=== PATIENT | female | born 1990 | race Caucasian/White ===

== ENCOUNTER 2018-04-29 08:45 | Inpatient (IN) | payer SELFPAY ==
[~2018-04-29] VITALS: Ht 160 cm; Wt 93.9 kg
[~2018-04-29 08:45] MED LIST: AMOXICILLIN500 MG PO; AUGMENTIN500TAB PO; BUTALBITAL/ACETAMIN1 PO; CEPHALEXIN500 MG PO; COD PO; CORTISPORIN OTI10 ML AD; DILANTIN100 MG OR; DILANTIN100 MG PO; EEG; FERROUS SULF325 M3 PO; FIORINAL PO; IBUPROFEN600 MG PO; KEPPRA500 M2 PO; LORTAB 7.57.5 MG PO; LORTAB5 OR; NICOTINE T21 MG/PATC TD; NO; NO CURRENT MEDS; NORCO1 TA1 PO; OXYCODONE HCL5 MG PO; PRE-NATAL PO; TUMS500 MG PO; TYLENOL 500MG TAB PO; ULTRAM50 MG OR; VALPROIC ACD250 MG; ZPAK PO; no home meds
--- NOTE | 2018-04-29 09:22 | NUR ---
Pt to room # 9 via W/C for bedside triage
--- NOTE | 2018-04-29 09:24 | NUR ---
PT TAKEN DIRECTLY TO RM 9 VIA WHEELCHAIR WITH SEVERE R FLANK PAIN
--- NOTE | 2018-04-29 09:35 | NUR ---
PT C/O RT FLANK PAIN . PT STATES PAIN IS 8/10. MD AWARE. N/O RECEIVED
[2018-04-29 10:10] LABS: URINE BILIRUBIN - DIPSTICK NEGATIVE (NEGATIVE); URINE BLOOD DIPSTICK TRACE-INTACT (NEGATIVE); URINE COLOR YELLOW; URINE GLUCOSE - DIPSTICK NEGATIVE (NEGATIVE); URINE KETONE NEGATIVE (NEGATIVE); URINE LEUK ESTERASE NEGATIVE (NEGATIVE); URINE PROTEIN - DIPSTICK NEGATIVE (NEG-TRACE); URINE SPECIFIC GRAVITY 1.015; URINE UROBILINOGEN - DIPSTICK 0.2 E.U./dL (0.2)
[2018-04-29 10:14] LABS: IMMATURE GRANULOCYTES 0.4 % (0.0-5.0); MEAN CELL VOLUME 95.9 fL CALC (80.0-100.0); MEAN CORPUSCULAR HGB 31.8 pG CALC (26.0-32.0); MEAN CORPUSCULAR HGB CONC 33.2 g/L CALC (32.0-36.0); NEUT# 11.02 thou/uL (2.00-7.15); RED BLOOD COUNT 4.62 mill/uL (4.20-5.60); RED CELL DISTRI WIDTH 12.9 % (11.5-15.5)
[2018-04-29 10:15] LABS: HEMATOCRIT 44.3 % (37.0-47.0); HEMOGLOBIN 14.7 g/dl (12.0-16.0)
[2018-04-29 10:16] LABS: URINE CLARITY CLOUDY; URINE NITRITE - DIPSTICK POSITIVE (Negative)
[2018-04-29 10:18] LABS: URINE BACTERIA MANY hpf; URINE EPITHELIAL CELLS MODERATE EPI/hpf (0-FEW)
[2018-04-29 10:23] LABS: BILIRUBIN, TOTAL 0.6 mg/dL (0.0-1.4); BUN 10 mg/dL (7-17); BUN/CREATININE RATIO 15 (12-20 (CALC)); CHLORIDE 103 mmol/l (95-108); CREATININE 0.7 mg/dL (0.5-1.0); GFR > 60 ML/MIN (>=60 (CALC)); GFR FOR AFR.AMER. > 60 ML/MIN (>=60 (CALC)); SGPT/ALT 62 u/l (9-52); SODIUM 143 mmol/l (137-146)
[2018-04-29 10:25] LABS: ALBUMIN 4.5 g/dL (3.2-5.0); ALKALINE PHOSPHATASE 58 u/l (38-126); ANION GAP 17 (6-22 (CALC)); CARBON DIOXIDE 28 mmol/l (22-30); POTASSIUM 4.6 mmol/l (3.5-5.1); SGOT/AST 49 u/l (14-36)
--- NOTE | 2018-04-29 10:52 | NUR ---
PT RESTING MORE COMFORTABLY AT THIS TIME.VSS. STATES PAIN IS 2/10.IV ABT & FLUIDS INFUSING ORDERED.SRX2, BED IN LOW POSIITON,CALL LIGHT WITHIN REACH
--- NOTE | 2018-04-29 11:10 | NUR ---
RESTING IN NO ACUTE DISTRESS. VSS. IV FLUIDS INFUSING WITHOUT DIFFICULTY. PT PAIN FREE
--- NOTE | 2018-04-29 11:53 | NUR ---
SBAR PRINTED TO FLOOR
--- NOTE | 2018-04-29 13:28 | NUR ---
CALLED REPORT TO DESTINY LOVE RN
--- NOTE | 2018-04-29 13:45 | NUR ---
TRANSPORTED TO [facility] VIA STRETCHER IN STABLE CONDITION. UPDATED DESTINY ON TEMP 100.2 AND JUS TMEDICATED WITH TYLENOL PO
[2018-04-29 14:00] VITALS: BP 123/68
--- NOTE | 2018-04-29 14:00 | NUR ---
PT ADMITTED FROM ER VIA STRECTHER TO MED SURG ROOM 279, PT STOOD OFF STRETCHER ADN AMBULATED TO SCALE THEN INTO BED WITH STEADY GAIT, VS OBTAINED TEMP 101.2 (MEDICATED IN ER PRIOR TO ARRIVAL HERE ON MS) ADMISSION ASSESSMENT COMPLETED; SEE INTERVENTIONS; LUNGS CLEAR NO SOB OR DISTRESS NOTED ABD SOFT, LAST BM 2-3 DAYS AGO, STATES POOR APPETITE AND PO INTAKE RELATED TO PAIN, HAS HAD R FLANK PAIN FOR FEW DAYS WITH FEVERS AND CLOUDY URINE AND OCCASIONAL ODOR, ALSO STATES SHE HAS HAD SOME BLOOD IN HER URINE BUT STATES THAT SHE HAS BEEN HAVING THIS BLOOD IN HER URINE SINCE HER MERINA PLACEMENT. ORIENTED TO ROOM AND UNIT, CALL TOMLIN WITHIN REACH, SAFETY MEASURES INTRODUCED, PT HAS BEEN NPO PER REPORT FORM ER NURSE FOR POTNETIAL PROCEDURE IN O.R. LATER TODAY, PT AWARE OF NPO STATUS, 22G IN RFA SALINE LOCKED AT THIS TIME, WILL CONTINUE TO MONITOR.
--- NOTE | 2018-04-29 14:55 | NUR ---
PT RESTING WITH EYES CLOSED, WILL INTITATE IVF ORDERED, NPO STATUS MAINTAINED, CALL TOMLIN WITHIN REACH
--- NOTE | 2018-04-29 15:20 | NUR ---
PT RESTING IN BED, TEMP REMAINS ELEVATED WILL NOTIFY
--- NOTE | 2018-04-29 15:46 | NUR ---
PT AWARE OF PLANNED PROCEURE AND CURRENT DELAY UNTIL TOMORROW, DIET ORDERED AND EDUCATED REGARDING NPO AFTER MIDNIGHT TONIGHT AGIAN FOR PLANNED PROCEDURES TOMORROW. IVF INFUSING WITHOUT INCIDENT.
--- NOTE | 2018-04-29 16:08 | NUR ---
PT MEDICATED WITH TORADOL FOR PAIN AND FEVER, WILL RE EVALUATE. AT BEDSIDE DISCUSSING PLAN OF CARE INCLUDING RESTARTING ANTI SEIZURE MEDICATION. PT VERBALIZES UNDERSTANDING
--- NOTE | 2018-04-29 17:52 | NUR ---
pt complained of burning at iv access in rac, unable to get aspirate, pain on flush, site removed intact and 22g placed in lac on 3rd attempt by Krystina Gilbert RN (first 2 attempts by this nurse)
--- NOTE | 2018-04-29 17:56 | NUR ---
SET UP ASSIST PROVIDED FOR PM MEAL
[2018-04-29 19:12] VITALS: BP 123/78
--- NOTE | 2018-04-29 19:38 | NUR ---
BEDSIDE REPORT RECEIVED FROM KAMLA SHEA. PT RESTING IN BED ON RIGHT SIDE WITH EYES CLOSED. C/O RIGHT FLANK PAIN 4/10 AND STATES THAT SHE FEELS LIKE HER TEMPERATURE IS GOING UP. CURRENT TEMP IS 100.1; TYLENOL GIVEN. RESPIRATIONS EVEN AND UNLABORED ON ROOM AIR. PLAN OF CARE DISCUSSED. PT ENCOURAGED TO VERBALIZE CONCERNS. STATES UNDERSTANDING. SAFETY MEAUSRES IN PLACE. CALL LIGHT WITHIN REACH.
--- NOTE | 2018-04-30 | NUR ---
PT UP TO BATHROOM TO VOID CLOUDY, YELLOW URINE. PLACED ON NPO DIET AT THIS TIME. PT STATES THAT FLANK PAIN HAS IMPROVED SINCE TORADOL WAS ADMINISTRED. RESPIRATIONS EVEN AND UNLABORED ON ROOM AIR. STAND BY ASSIST TO THE BATHROOM. IV FLUIDS INFUSING WITHOUT DIFFICULTY; IV SITE APPEARS HEALTHY. SAFETY MEASURES IN PLACE. CALL LIGHT WITHIN REACH.
[2018-04-30 04:00] VITALS: BP 129/80
[2018-04-30 05:23] LABS: HEMATOCRIT 39.2 % (37.0-47.0); HEMOGLOBIN 12.9 g/dl (12.0-16.0); IMMATURE GRANULOCYTES 0.4 % (0.0-5.0); MEAN CELL VOLUME 96.6 fL CALC (80.0-100.0); MEAN CORPUSCULAR HGB 31.8 pG CALC (26.0-32.0); MEAN CORPUSCULAR HGB CONC 32.9 g/L CALC (32.0-36.0); NEUT# 9.43 thou/uL (2.00-7.15); RED BLOOD COUNT 4.06 mill/uL (4.20-5.60); RED CELL DISTRI WIDTH 12.8 % (11.5-15.5)
--- NOTE | 2018-04-30 05:29 | NUR ---
PT REMAINS WITH LOW GRADE TEMPERATURE. SPIKED UP TO 102.0 THIS AM. PAIN HAS BEEN MANAGED WITH TYLENOL AND TORADOL. WILL CONTINUE TO MONITOR.
[2018-04-30 07:50] VITALS: BP 119/76
--- NOTE | 2018-04-30 07:50 | NUR ---
PT ALERT AND ORIENTED RESTING IN BED, STATES PAIN "FINE RIGHT NOW" AFEBRILE THIS AM WITH T MAX LAST PM 102.0 PER REPORT; NPO SINCE MIDNIGHT; MAINTAINED NPO STATUS THIS AM; PT AWARE OF PLANNED SURGICAL INTERVENTION TO DAY AT 245P, COMFORT MEASURES PROVIDED, IVF CONTINUE AT PRESCRIBED RATE. WILL CONTINUE TO MONITOR.
--- NOTE | 2018-04-30 08:43 | NUR ---
PT RESTING; CALL TOMLIN WITHIN REACH; NO S/S OF DISTRESS NOTED.
--- NOTE | 2018-04-30 09:43 | NUR ---
NICOTINE PATCH APPLIED PER PT REQUEST, TYELNOL GIVEN FOR TEMP 100.5 WILL MONITOR CLOSELY. CALL TOMLIN WITHIN REACH, WILL CONTINUE TO MONITOR
--- NOTE | 2018-04-30 10:09 | NUR ---
PT AGOTATED TALKING ON PHONE, STARTED ON ABT EDUCATION GIVEN PROVIDING MEDICATION; REASON FOR ADMINISTRATION; EXPECTATIONS AND POSSBILE SIDE EFFECTS, VERBALIZES UNDERSTANDING.
--- NOTE | 2018-04-30 12:27 | NUR ---
MEDICATED FOR PAIN ORDERED, REMAINS NPO
--- NOTE | 2018-04-30 13:00 | NUR ---
PT STATES MODERATE RELIEF AFTER TORADOL, AWAITING O.R. NPO STATUS MAINTAINED
--- NOTE | 2018-04-30 13:32 | NUR ---
PT TRASNFERRED SELF TO STRETCHER, TO O.R. VIA STRETCHER WITH O.R.STAFF
--- NOTE | 2018-04-30 16:51 | NUR ---
PT BACK TO ROOM FROM OR VIA STRETCHER
--- NOTE | 2018-04-30 16:55 | NUR ---
PT BACK FROM OR, TRANSFERRED SELF TO BED WITH MIN ASSIST PT HAS STERI STRIPS AND STRINGS (ATTACHED TO STENTS PER REPORT) NOTED ON PUBIC AREA COVERED WITH TRASNPARENT DRESSING, IVF INFUSING AT PRESCRUBED RATE, TO 22G IN LEFT AC, PT REQUESTING TO AMBULATE TO BATHROOM, DID SO WITH STAND BY ASSIST, VOIDED 200 ML SLITHGLY CLOUDY AND BLOODY URINE, C/O BURNING WITH URINATION, BUT TOLERAABLE PER HER, BACK TO BED WITH STEADY GAIT, REPOSITIONS SELF FOR COMFORT, EDUCATED REGARDING PLAN OF CARE INCLDUING AMBULATION, CHRISSY CARE, DIET ORDERED, PAIN CONTROL AND PROBABLE D/C TOMORROW, PT VERBALIZES UNDERSTANDING AND ALL QUESTIONS ANSWERED, CALL TOMLIN WITHIN REACH.
--- NOTE | 2018-04-30 18:03 | NUR ---
SET UP ASSIST PROVIDED FOR PM MEAL, AND WILL MEDICATE FOR COMPLAINTS OF PAIN ORDERED
--- NOTE | 2018-04-30 18:29 | NUR ---
PT MEDICATED FOR PAINAND WITH PYRIDIUM WELL FOR COMFORT, AFTER AMBULATING TO BATHROOM, CONTINENT OF ANOTHER 200 ML CLOUDY SLIGHTLY BLOODY URINE, VISITORS AT BEDSIDE PT TOLERATED ACTIVITY WELL, BACK TO BED AND REPOSITIONED SELF FOR COMFORT, CALL TOMLIN WITHIN REACH
[2018-04-30 19:35] VITALS: BP 121/72
--- NOTE | 2018-04-30 19:39 | NUR ---
BEDSIDE REPORT RECEIVED FROM KAMLA DIXON. PT RESTING IN BED ON RIGHT SIDE WITH EYES CLOSED. C/O 5/10 PAIN IN VAGINAL AREA. RESPIRATIONS EVEN AND UNLABORED ON ROOM AIR. PLAN OF CARE REVIEWED. PT ENCOURAGED TO VERBALIZE CONCERNS. STATES UNDERSTANDING. SAFETY MEASURES IN PLACE. CALL LIGHT WITHIN REACH.
[2018-04-30 23:53] VITALS: BP 114/75
--- NOTE | 2018-05-01 | NUR ---
PT ASLEEP AT THIS TIME WITH NO SIGNS OF DISTRESS; AWAKENS TO VERBAL STIMULI. VS STABLE AND TEMPERTURE REMAINS LOW GRADE. HAS REMAINED IN BED; REPOSITIONING SELF. IV FLUIDS INFUSING WITHOUT DIFFICULTY; IV SITE APPEARS HEALTHY. NO REQUESTS OR CONCERNS AT THIS TIME. SAFETY MEASURES IN PLACE. CALL LIGHT WITHIN REACH.
[2018-05-01 03:55] VITALS: BP 125/85
--- NOTE | 2018-05-01 04:00 | NUR ---
PT STATES THAT SHE WAS UP TO VOID X 2 INDEPENDENTLY R/T URGENCY; REPORTS CLOUDY YELLOW AND BLOOD TINGED URINE. C/O SOME FLANK AND VAGINAL PAIN; ONE PERCOCET GIVEN AND SNACK. PT INITALLY DECLINED LAB WORK, HOWEVER, STATES THAT SHE WILL ALLOW ONLY ONE ATTEMPT. ATTEMPT UNSUCCESSFUL; LAB WORK NOT OBTAINED THIS AM. SAFETY MEASURES IN PLACE. CALL LIGHT WITHIN REACH.
--- NOTE | 2018-05-01 07:24 | NUR ---
SHIFT CHAGE REPORT FROM MELODIE, PT AWAKE ALERT AND ORIENTED, TALKING ON PHONE AT THIS TIME AND ASKING LIMITED RADIOLOGY TECHNICIAN TO COME BACK IN MINUTES TO DO BLOOD WORK. I WENT IN ROOM AND ASKED PT TO LEND THE OTHER ARM FOR BLOOD WORK BUT SHE SHE BECAME IRATE STATING "YOU ALL DON'T KNOW HOW TO DO IT ANYWAY, I'M THE ONE GETTING STICK TOO MANY TIMES" I ADVISED HER TO LET US KNOW WHETHER OR NOT SHE WANTS TO HAVE HER LABS DONE AND SHE BLURTED OUT, "I DONT WANT IT", WILL CONTINUE TO MONITOR.
[2018-05-01 07:44] LABS: HEMATOCRIT 37.8 % (37.0-47.0); HEMOGLOBIN 12.4 g/dl (12.0-16.0); IMMATURE GRANULOCYTES 0.4 % (0.0-5.0); MEAN CELL VOLUME 97.4 fL CALC (80.0-100.0); MEAN CORPUSCULAR HGB CONC 32.8 g/L CALC (32.0-36.0); NEUT# 6.88 thou/uL (2.00-7.15); RED BLOOD COUNT 3.88 mill/uL (4.20-5.60)
[2018-05-01 08:22] LABS: ALKALINE PHOSPHATASE 50 u/l (38-126); ANION GAP 12 (6-22 (CALC)); BILIRUBIN, TOTAL 0.3 mg/dL (0.0-1.4); BUN 8 mg/dL (7-17); BUN/CREATININE RATIO 14 (12-20 (CALC)); CARBON DIOXIDE 26 mmol/l (22-30); CHLORIDE 108 mmol/l (95-108); CREATININE 0.5 mg/dL (0.5-1.0); GFR > 60 ML/MIN (>=60 (CALC)); GFR FOR AFR.AMER. > 60 ML/MIN (>=60 (CALC)); MAGNESIUM 1.9 mg/dL (1.6-2.3); POTASSIUM 4.3 mmol/l (3.5-5.1); SGOT/AST 48 u/l (14-36); SGPT/ALT 63 u/l (9-52); SODIUM 142 mmol/l (137-146)
[2018-05-01 08:24] LABS: TOTAL PROTEIN 5.7 g/dL (6.3-8.2)
[2018-05-01 08:27] VITALS: BP 137/85
--- NOTE | 2018-05-01 08:42 | NUR ---
PT IS RELAXED AND CALM AT THIS TIME, COMPLIANT WITH ALL TREATMENTS, ALL NEEDS ADDRESSED.
--- NOTE | 2018-05-01 11:09 | NUR ---
PT RESTING IN BED, DENIED PAIN/DISCOMFORT, DR SANTIAGO HERE ROUNDING, DISCUSSED PLAN OF CARE, PT STATED UNDERSTANDING.
[2018-05-01] MEDS ORDERED: CIPROFLOXACN500 MG PO (11:48)
[2018-05-01] MEDS ORDERED: KEFLEX500 M1 PO (13:27)
[2018-05-01] MEDS ORDERED: PERCOCET 5/325M1 TAB PO (13:56)
--- NOTE | 2018-05-01 15:15 | NUR ---
RESTING IN BED, REQUEST SCRIPT FOR ANALGESIC TO CONTROL PAIN AT HOME, NOTIFIED AND ADDRESS CONCERN. PT STATED HER RIDE WILL NOT BE HERE UNTIL AFTER 1600 WHEN HE/SHE LEAVES WORK, PAIN CONTROLLED, ALL NEEDS MET/ADDRESSED, CALL TOMLIN IN REACH.
--- NOTE | 2018-05-01 16:12 | NUR ---
Discharge instructions given. Patient verbalizes understanding of same. Discharged in stable condition via Wheelchair to Home with significant other. All belongings sent with pt.
== END 2018-05-01 16:00 | disposition home or self-care (01) | DRG 690 ==
LOC: ED 08:45 → ED-I 11:32 → ED 12:18 → MS2 12:19
PROVIDERS: Emergency Medicine; ADMIT Internal Medicine Nephrology; ATTEND Internal Medicine Nephrology
PROC: 0T768DZ Dilation of Right Ureter with Intraluminal Device, Via Natural or Artificial Opening Endoscopic (ICD-10-PCS; principal; 2018-04-30)
PROC: 3E0234Z Introduction of Serum, Toxoid and Vaccine into Muscle, Percutaneous Approach (ICD-10-PCS; 2018-05-01)
DX: N13.6 Pyonephrosis (principal); F17.210 Nicotine dependence, cigarettes, uncomplicated; G40.909 Epilepsy, unspecified, not intractable, without status epilepticus; E66.9 Obesity, unspecified; B96.20 Unspecified Escherichia coli [E. coli] as the cause of diseases classified elsewhere; Z68.33 Body mass index [BMI] 33.0-33.9, adult; Z91.14 Patient's other noncompliance with medication regimen; Z23 Encounter for immunization
CPT/HCPCS: C1769; J1650; Q9967

== ENCOUNTER 2019-01-18 19:06 | Emergency (ER) | payer SELFPAY ==
[~2019-01-18] VITALS: Ht 160 cm; Wt 88.0 kg
[~2019-01-18 19:06] MED LIST changes: +CIPROFLOXACN500 MG PO; +KEFLEX500 M1 PO; +PERCOCET 5/325M1 TAB PO
[2019-01-18] MEDS ORDERED: PENICILLN VK500 MG PO (19:54)
[2019-01-18] MEDS ORDERED: LORTAB 5/3255 MG PO (19:54)
== END 2019-01-18 20:22 | disposition home or self-care (01) | DRG 603 ==
LOC: ED 19:06
DX: L02.91 Cutaneous abscess, unspecified (principal); S02.5XXA Fracture of tooth (traumatic), initial encounter for closed fracture; R68.84 Jaw pain; F17.210 Nicotine dependence, cigarettes, uncomplicated; X58.XXXA Exposure to other specified factors, initial encounter

== ENCOUNTER 2019-06-08 17:28 | Emergency (ER) | payer SELFPAY ==
[~2019-06-08] VITALS: Ht 160 cm; Wt 100.0 kg
[~2019-06-08 17:28] MED LIST changes: +LORTAB 5/3255 MG PO; +PENICILLN VK500 MG PO
[2019-06-08] MEDS ORDERED: CORTISPORIN OTI10 M2 AD ×2 (19:03→19:33)
[2019-06-08 19:05] VITALS: BP 166/79
== END 2019-06-08 19:05 | disposition home or self-care (01) | DRG 156 ==
LOC: ED 17:28
DX: H60.91 Unspecified otitis externa, right ear (principal); F17.200 Nicotine dependence, unspecified, uncomplicated

== ENCOUNTER 2019-11-16 | Inpatient (IN) | payer SELFPAY ==
[2019-11-15] VITALS (8 sets, daily range): BP systolic 147–169; BP diastolic 68–96
[2019-11-15 18:42] LABS: IMMATURE GRANULOCYTES 0.5 % (0.0-5.0); MEAN CORPUSCULAR HGB CONC 33.3 g/dL CAL (32.0-36.0); NEUT# 8.63 thou/uL (2.00-7.15); RED CELL DISTRI WIDTH 12.9 % (11.5-15.5)
[2019-11-15 18:47] LABS: HEMATOCRIT 46.5 % (37.0-47.0); HEMOGLOBIN 15.5 g/dl (12.0-16.0)
[2019-11-15 19:35] LABS: ALKALINE PHOSPHATASE 54 u/l (38-126); BUN 11 mg/dL (7-17); BUN/CREATININE RATIO 20 (12-20 (CALC)); CHLORIDE 108 mmol/l (95-108); CREATININE 0.6 mg/dL (0.5-1.0); GFR > 60 ML/MIN (>=60 (CALC)); GFR FOR AFR.AMER. > 60 ML/MIN (>=60 (CALC)); POTASSIUM 3.9 mmol/l (3.5-5.1); SGOT/AST 31 u/l (14-36); SODIUM 140 mmol/l (137-146)
[2019-11-15 19:41] LABS: ALBUMIN 4.5 g/dL (3.2-5.0); ANION GAP 16 (6-22 (CALC)); BILIRUBIN, TOTAL 0.5 mg/dL (0.0-1.4); CARBON DIOXIDE 20 mmol/l (22-30)
[2019-11-15 20:38] LABS: URINE BILIRUBIN - DIPSTICK NEGATIVE (NEGATIVE); URINE BLOOD DIPSTICK SMALL (NEGATIVE); URINE COLOR YELLOW; URINE GLUCOSE - DIPSTICK 100 mg/dL (NEGATIVE); URINE KETONE 15 mg/dL (NEGATIVE); URINE LEUK ESTERASE NEGATIVE (NEGATIVE); URINE NITRITE - DIPSTICK NEGATIVE (Negative); URINE PH 5.5 (4.5-8.0); URINE PROTEIN - DIPSTICK 30 mg/dL (NEG-TRACE); URINE SPECIFIC GRAVITY >=1.030
[2019-11-15 20:49] LABS: URINE SQUAMOUS EPITHELIAL CELL FEW EPI/hpf (0-FEW)
[2019-11-15 20:50] LABS: BARBITURATES NEGATIVE (NEGATIVE); COCAINE NEGATIVE (NEGATIVE); METHADONE NEGATIVE (NEGATIVE); OXCYCODONE NEGATIVE (NEGATIVE); TETRAHYDROCANNABIONOL NEGATIVE (NEGATIVE); TRICYLIC ANTIDEPRESSANTS NEGATIVE (NEGATIVE)
[2019-11-16] VITALS (24 sets, daily range): BP systolic 114–142; BP diastolic 56–72
[~2019-11-16] MED LIST changes: +CORTISPORIN OTI10 M2 AD
[2019-11-16 05:03] LABS: HEMATOCRIT 42.6 % (37.0-47.0); HEMOGLOBIN 13.8 g/dl (12.0-16.0); IMMATURE GRANULOCYTES 0.5 % (0.0-5.0); MEAN CELL VOLUME 95.7 fL CALC (80.0-100.0); MEAN CORPUSCULAR HGB CONC 32.4 g/dL CAL (32.0-36.0); NEUT# 8.95 thou/uL (2.00-7.15); RED BLOOD COUNT 4.45 mill/uL (4.20-5.60)
[2019-11-16 05:16] LABS: ALBUMIN 3.9 g/dL (3.2-5.0); ALKALINE PHOSPHATASE 51 u/l (38-126); ANION GAP 14 (6-22 (CALC)); BILIRUBIN, TOTAL 0.3 mg/dL (0.0-1.4); BUN 10 mg/dL (7-17); BUN/CREATININE RATIO 18 (12-20 (CALC)); CARBON DIOXIDE 21 mmol/l (22-30); CHLORIDE 108 mmol/l (95-108); CREATININE 0.5 mg/dL (0.5-1.0); GFR > 60 ML/MIN (>=60 (CALC)); GFR FOR AFR.AMER. > 60 ML/MIN (>=60 (CALC)); POTASSIUM 4.5 mmol/l (3.5-5.1); SGOT/AST 24 u/l (14-36); SODIUM 139 mmol/l (137-146); TOTAL PROTEIN 7.2 g/dL (6.3-8.2)
[2019-11-16 09:36] LABS: C-REACTIVE PROTEIN 5.8 mg/dL (0-0.9)
[2019-11-17] VITALS (16 sets, daily range): BP systolic 118–136; BP diastolic 56–69
[2019-11-17 06:09] LABS: HEMATOCRIT 38.5 % (37.0-47.0); HEMOGLOBIN 12.4 g/dl (12.0-16.0); IMMATURE GRANULOCYTES 0.9 % (0.0-5.0); MEAN CORPUSCULAR HGB 31.2 pG CALC (26.0-32.0); MEAN CORPUSCULAR HGB CONC 32.2 g/dL CAL (32.0-36.0); NEUT# 15.59 thou/uL (2.00-7.15); RED BLOOD COUNT 3.97 mill/uL (4.20-5.60); RED CELL DISTRI WIDTH 13.2 % (11.5-15.5)
[2019-11-17 06:22] LABS: ALBUMIN 3.3 g/dL (3.2-5.0); ALKALINE PHOSPHATASE 42 u/l (38-126); BILIRUBIN, TOTAL 0.2 mg/dL (0.0-1.4); BUN 7 mg/dL (7-17); BUN/CREATININE RATIO 13 (12-20 (CALC)); CHLORIDE 110 mmol/l (95-108); CREATININE 0.6 mg/dL (0.5-1.0); GFR > 60 ML/MIN (>=60 (CALC)); GFR FOR AFR.AMER. > 60 ML/MIN (>=60 (CALC)); POTASSIUM 3.9 mmol/l (3.5-5.1); SGOT/AST 20 u/l (14-36); SODIUM 142 mmol/l (137-146); TOTAL PROTEIN 6.2 g/dL (6.3-8.2)
[2019-11-17 06:44] LABS: ANION GAP 10 (6-22 (CALC)); CARBON DIOXIDE 26 mmol/l (22-30)
== END 2019-11-17 15:25 | disposition short-term general hospital (02) | DRG 915 ==
PROVIDERS: Family Medicine; Internal Medicine; ADMIT Internal Medicine
PROC: 0BH17EZ Insertion of Endotracheal Airway into Trachea, Via Natural or Artificial Opening (ICD-10-PCS; principal; 2019-11-15)
PROC: 5A1945Z Respiratory Ventilation, 24-96 Consecutive Hours (ICD-10-PCS; 2019-11-15)
PROC: 02HV33Z Insertion of Infusion Device into Superior Vena Cava, Percutaneous Approach (ICD-10-PCS; 2019-11-15)
PROC: 0T9B70Z Drainage of Bladder with Drainage Device, Via Natural or Artificial Opening (ICD-10-PCS; 2019-11-15)
DX: T78.2XXA Anaphylactic shock, unspecified, initial encounter (principal); J18.9 Pneumonia, unspecified organism; J96.01 Acute respiratory failure with hypoxia; Z20.828 Contact with and (suspected) exposure to other viral communicable diseases
CPT/HCPCS: J1650; J2060

== ENCOUNTER 2020-06-12 10:40 | Emergency (ER) | payer SELFPAY ==
[~2020-06-12] VITALS: Ht 160 cm; Wt 75.0 kg
[2020-06-12] MEDS ORDERED: SINGULAIR10 MG PO (11:12)
[2020-06-12 11:28] LABS: IMMATURE GRANULOCYTES 0.4 % (0.0-5.0); MEAN CORPUSCULAR HGB 31.3 pG CALC (26.0-32.0); MEAN CORPUSCULAR HGB CONC 31.6 g/dL CAL (32.0-36.0); NEUT# 6.28 thou/uL (2.00-7.15); RED BLOOD COUNT 5.02 mill/uL (4.20-5.60); RED CELL DISTRI WIDTH 12.6 % (11.5-15.5)
[2020-06-12 11:31] LABS: HEMATOCRIT 49.7 % (37.0-47.0); HEMOGLOBIN 15.7 g/dl (12.0-16.0)
[2020-06-12 11:47] LABS: ALBUMIN 4.4 g/dL (3.2-5.0); ALKALINE PHOSPHATASE 64 u/l (38-126); ANION GAP 14 (6-22 (CALC)); BILIRUBIN, TOTAL 0.8 mg/dL (0.0-1.4); BUN 12 mg/dL (7-17); BUN/CREATININE RATIO 17 (12-20 (CALC)); CARBON DIOXIDE 20 mmol/l (22-30); CHLORIDE 108 mmol/l (95-108); CREATININE 0.7 mg/dL (0.5-1.0); GFR > 60 ML/MIN (>=60 (CALC)); GFR FOR AFR.AMER. > 60 ML/MIN (>=60 (CALC)); POTASSIUM 3.7 mmol/l (3.5-5.1); SGOT/AST 38 u/l (14-36); SODIUM 138 mmol/l (137-146); TOTAL PROTEIN 7.8 g/dL (6.3-8.2)
[2020-06-12] MEDS ORDERED: MEDDOSEPAK PO (12:32)
[2020-06-12 12:40] VITALS: BP 140/60
== END 2020-06-12 12:41 | disposition home or self-care (01) | DRG 916 ==
LOC: ED 10:40
DX: T78.2XXA Anaphylactic shock, unspecified, initial encounter (principal); F17.200 Nicotine dependence, unspecified, uncomplicated
CPT/HCPCS: J0171

== ENCOUNTER 2023-02-19 20:29 | Emergency (ER) | payer SELFPAY ==
[~2023-02-19] VITALS: Ht 160 cm; Wt 78.0 kg
[~2023-02-19 20:29] MED LIST changes: +MEDDOSEPAK PO; +SINGULAIR10 MG PO
[2023-02-19 22:51] VITALS: BP 142/73
== END 2023-02-19 22:56 | disposition home or self-care (01) | DRG 605 ==
LOC: ED 20:29
PROC: 0HQ0XZZ Repair Scalp Skin, External Approach (ICD-10-PCS; principal; 2023-02-19)
DX: S01.01XA Laceration without foreign body of scalp, initial encounter (principal); F17.200 Nicotine dependence, unspecified, uncomplicated; W18.2XXA Fall in (into) shower or empty bathtub, initial encounter; Y93.E1 Activity, personal bathing and showering; Y92.002 Bathroom of unspecified non-institutional (private) residence as the place of occurrence of the external cause; Z91.14 Patient's other noncompliance with medication regimen

== ENCOUNTER 2023-03-01 15:13 | Emergency (ER) | payer SELFPAY ==
[~2023-03-01] VITALS: Ht 160 cm; Wt 90.0 kg
[2023-03-01 15:22] VITALS: BP 180/127
[2023-03-01 15:24] VITALS: BP 169/113
[2023-03-01 15:36] VITALS: BP 169/113
== END 2023-03-01 15:36 | disposition home or self-care (01) | DRG 950 ==
LOC: ED 15:13
DX: S01.01XD Laceration without foreign body of scalp, subsequent encounter (principal); X58.XXXD Exposure to other specified factors, subsequent encounter; F17.200 Nicotine dependence, unspecified, uncomplicated; R03.0 Elevated blood-pressure reading, without diagnosis of hypertension

== ENCOUNTER 2023-03-29 19:00 | Emergency (ER) | payer SELFPAY ==
[~2023-03-29] VITALS: Ht 160 cm; Wt 100.0 kg
[2023-03-29 19:14] VITALS: BP 149/110
[2023-03-29 19:30] VITALS: BP 159/102
[2023-03-29 19:45] VITALS: BP 152/99
[2023-03-29] MEDS ORDERED: PREDNISONE50 MG PO (19:57)
[2023-03-29] MEDS ORDERED: ZYRTEC10 MG PO (19:57)
[2023-03-29 20:00] VITALS: BP 132/85
[2023-03-29 20:15] VITALS: BP 134/84
[2023-03-29 20:19] VITALS: BP 134/84
== END 2023-03-29 20:19 | disposition home or self-care (01) | DRG 916 ==
LOC: ED 19:00
DX: T78.2XXA Anaphylactic shock, unspecified, initial encounter (principal); F17.200 Nicotine dependence, unspecified, uncomplicated

== ENCOUNTER 2023-04-05 08:41 | Inpatient (IN) | payer SELFPAY ==
[~2023-04-05] VITALS: Ht 160 cm; Wt 105.3 kg
[2023-04-05] VITALS (54 sets, daily range): BP systolic 92–231; BP diastolic 41–120
[~2023-04-05 08:41] MED LIST changes: +PREDNISONE50 MG PO; +ZYRTEC10 MG PO
--- NOTE | 2023-04-05 08:41 | NUR ---
PT WHEELED TO ROOM 10 AND SHE CLIMBED INTO BED. BREATHING STARTED IMMEDIATELY GETTING HARDER TO BREATH AND SWALLOW. ANGIO EDEMA ALSO INCREASING. PROVIDER AT BEDSIDE ON ARRIVAL TO THE ROOM. ANAPHYLAXIS KIT PUT AT BEDSIDE
--- NOTE | 2023-04-05 08:45 | NUR ---
0845 EPI GIVEN IM BY MELODIE CASON 0854 BENEDRYL 50MG GIVEN IV 0855 SOLUMEDROL 125MG IV
--- NOTE | 2023-04-05 09:05 | NUR ---
MAC AGUILAR STAPLE LASTER AT THE BEDSIDE.SUCS,CLOVER AND EIOMIDATE GIVEN MY STAPLE LASTER. DR. GONZALEZ AT THE BEDSIDE AND INTUBATED PATIENT WITH A 7.5 ET TUBE AND SECURED AT THE LIP, 22.
--- NOTE | 2023-04-05 09:20 | NUR ---
PATIENTS WEIGHT IS 105.9 KG = 106 ACTUAL WEIGHT. PROPOFOL GTT INITIATED AT 20MCG/KG/HR. 50MG PROPOFOL BOLUS GIVEN. 924 AN ADDITIONAL 50MG PROPOFOL BOLUS GIVEN BY DR. GONZALEZ. DR. GONZALEZ REMAINS AT THE BEDSIDE. 100MCG OF FENTANYL ALSO GIVEN . PATIENTS V/S ARE HYPERTENSIVE AND TACHYCARDIC.
[2023-04-05 09:27] LABS: BASO% 0.3 % (0-3); EOS% 1.9 % (0-8); HEMATOCRIT 47.7 % (37.0-47.0); HEMOGLOBIN 16.1 g/dl (12.0-16.0); IMMATURE GRANULOCYTES 0.5 % (0.0-5.0); LYMPH% 32.9 % (15-41); MEAN CELL VOLUME 97.7 fL CALC (80.0-100.0); MEAN CORPUSCULAR HGB CONC 33.8 g/dL CAL (32.0-36.0); MONO% 10.5 % (2-13); NEUT# 9.33 thou/uL (2.00-7.15); NEUT% 53.9 % (42-76); RED BLOOD COUNT 4.88 mill/uL (4.20-5.60); RED CELL DISTRI WIDTH 13.1 % (11.5-15.5)
--- NOTE | 2023-04-05 09:30 | NUR ---
PROPOFOL GTT INCREASED TO 30MCG/KG/HR. ADDITIONAL 50MG PROPOFOL BOLUS GIVEN .
--- NOTE | 2023-04-05 10:05 | NUR ---
PROPOFOL GTT INCREASED TO 40MCG/KG/HR . DR. GONZALEZ AT THE BEDSIDE TO ADMINISTER ANOTHER 100MG PROPOFO BOLUS. PATIENT HAS A HIGH TOLERANCE TO MEDICATIONS PROVIDED.
[2023-04-05 10:32] LABS: ALKALINE PHOSPHATASE 50 u/l (38-126); ANION GAP 14 (6-22 (CALC)); BUN 12 mg/dL (7-17); BUN/CREATININE RATIO 17 (12-20 (CALC)); CARBON DIOXIDE 22 mmol/l (22-30); CHLORIDE 107 mmol/l (95-108); CREATININE 0.7 mg/dL (0.5-1.0); GFR FOR AFR.AMER. > 60 ML/MIN (>=60 (CALC)); GFR OTHER RACES > 60 ML/MIN (>=60 (CALC)); POTASSIUM 3.4 mmol/l (3.5-5.1); SGOT/AST 38 u/l (14-36); SODIUM 139 mmol/l (137-146); TOTAL PROTEIN 7.4 g/dL (6.3-8.2)
--- NOTE | 2023-04-05 11:00 | NUR ---
ATIVAN GTT INITIATED AT 5MG/HR. V/S STILL TACHYCARDIC AND HYPERTENSIVE. LANDEROS CATHETER INSERTED AT THIS TIME. UA SENT TO THE LAB.
--- NOTE | 2023-04-05 11:50 | NUR ---
ATIVAN GTT INCREASED TO 8MG/HR. FENTYNL 150MCG ORDERED AND GIVEN AT THIS TIME. JERRY CASON AT THE BEDSIDE TO WITNESS WASTE.
--- NOTE | 2023-04-05 12:48 | NUR ---
V/S HAVE NOW STABLIZED. SPOUSE AT THE BEDSIDE. PROPOFOL GTT INFUSING AT 40MCG/HR = 25.4ML/HR ATIVAN GTT INFUSING AT 8MG/HR = 40ML/HR NORMAL SALINE INFUSING AT 200ML/HR
--- NOTE | 2023-04-05 13:20 | NUR ---
DR. GONZALEZ INSTRUCTED FOR ATIVAN GTT TO BE DECREASED TO 6MG/HR. V/S PERFECT AT THIS TIME.
--- NOTE | 2023-04-05 13:59 | NUR ---
Patient arrived to the unit accompained by ER staff at 1359. Patient noted to have RIJ in place and 20 RH SL. Patient on prop, ativan and NS. Patient not fully sedated, prop increased. SR on the monitor. Mo noted. Skin is red and hives noted throughout. SCDs placed. NAD noted. Will continue to monitor.
--- NOTE | 2023-04-05 14:37 | NUR ---
VERBAL REPORT GIVEN TO HANSEL RN IN THE ICU. RT AND SN TRANSPORTRED PATIENT TO ICU.
--- NOTE | 2023-04-05 18:50 | NUR ---
Patient appers peacful. RASS of -4. SR on the monitor. BP appears soft, will decrease ativan. NAD noted. Will continue to monitor.
--- NOTE | 2023-04-05 19:00 | NUR ---
remains sedated. vent cont. panel monitor shows sinus rhythm. rij tlc in place. ivf infusing well. saline lock rt hand. tabor cath in place. urine clear yellow. bilat scds cont. turned & repositioned.
--- NOTE | 2023-04-05 20:30 | NUR ---
urine spec collected & sent to lab.
[2023-04-05 20:43] LABS: URINE BILIRUBIN - DIPSTICK Negative (NEGATIVE); URINE BLOOD DIPSTICK Negative (NEGATIVE); URINE COLOR Yellow; URINE GLUCOSE - DIPSTICK Negative (NEGATIVE); URINE KETONE Negative (NEGATIVE); URINE LEUK ESTERASE Negative (NEGATIVE); URINE NITRITE - DIPSTICK Negative (Negative); URINE PROTEIN - DIPSTICK Negative (NEG-TRACE); URINE SPECIFIC GRAVITY 1.015; URINE UROBILINOGEN - DIPSTICK 0.2 E.U./dL (0.2)
--- NOTE | 2023-04-05 22:00 | NUR ---
vent cont. no distres. potline monitor shows sinus rhythm.
[2023-04-06] VITALS (64 sets, daily range): BP systolic 91–125; BP diastolic 35–63
--- NOTE | 2023-04-06 00:01 | NUR ---
vent cont. ivf infusing well. tabor draining well.
--- NOTE | 2023-04-06 02:00 | NUR ---
vent cont. nad. cardiac cath tech shows sinus rhythm.
--- NOTE | 2023-04-06 05:15 | NUR ---
rt here. abgs drawn.
[2023-04-06 05:42] LABS: LYMPH% 10.5 % (15-41); MEAN CORPUSCULAR HGB 33.2 pG CALC (26.0-32.0); MEAN CORPUSCULAR HGB CONC 32.6 g/dL CAL (32.0-36.0); MONO% 4.2 % (2-13); NEUT# 10.05 thou/uL (2.00-7.15); NEUT% 84.3 % (42-76); RED BLOOD COUNT 3.97 mill/uL (4.20-5.60); RED CELL DISTRI WIDTH 13.6 % (11.5-15.5)
--- NOTE | 2023-04-06 05:45 | NUR ---
bath & linen change x2 assists.
[2023-04-06 05:55] LABS: HEMATOCRIT 40.5 % (37.0-47.0); HEMOGLOBIN 13.2 g/dl (12.0-16.0)
[2023-04-06 05:56] LABS: ALBUMIN 3.3 g/dL (3.2-5.0); ALKALINE PHOSPHATASE 42 u/l (38-126); ANION GAP 10 (6-22 (CALC)); BUN 7 mg/dL (7-17); BUN/CREATININE RATIO 11 (12-20 (CALC)); CARBON DIOXIDE 21 mmol/l (22-30); CHLORIDE 112 mmol/l (95-108); CREATININE 0.6 mg/dL (0.5-1.0); GFR FOR AFR.AMER. > 60 ML/MIN (>=60 (CALC)); GFR OTHER RACES > 60 ML/MIN (>=60 (CALC)); SGOT/AST 22 u/l (14-36); SODIUM 140 mmol/l (137-146); TOTAL PROTEIN 6.1 g/dL (6.3-8.2)
[2023-04-06 06:08] LABS: BILIRUBIN, TOTAL 0.4 mg/dL (0.02-1.3)
--- NOTE | 2023-04-06 06:27 | NUR ---
xray here. pcxr obtained.
--- NOTE | 2023-04-06 08:00 | NUR ---
Patient repositioned to L side. Generalized edema. Facial redness noted. Swollen, protruding tongue noted. SCDs in place. Patient on Prop and Ativan. RIJ and 20 RH flushes and draws well. SR on the monitor. Lungs clear/diminished to ascultation. Peripheral pulses strong. Mo catheter in place, urine clear and yellow. NAD noted. Will continue to monitor.
--- NOTE | 2023-04-06 10:39 | NUR ---
Patient repostioned to L side. SR on the monitor. NAD noted Bed in low position. Will continue to monitor.
--- NOTE | 2023-04-06 12:00 | NUR ---
PATIENT VENTED AND SEDATED. SR ON THE MONITOR. BED IN LOW POSITION. NAD NOTED.
--- NOTE | 2023-04-06 14:00 | NUR ---
PATIENT REPOSITIONED TO R SIDE. SR ON THE MONITOR. NAD NOTED. WILL CONTINUE TO MONITOR.
--- NOTE | 2023-04-06 16:40 | NUR ---
GROUND TRANSPORT UNABLE TO TRANSFER PATIENT D/T ISSUES WITH TRANSPORT VENT. PATIENT'S SIGNIFICANT OTHER MADE AWARE. NAD NOTED. WILL CONTINUE TO MONITOR
--- NOTE | 2023-04-06 17:55 | NUR ---
PATIENT LEFT THE UNIT VIA STRETCHER TRANSPORTED BY [facility]. PATIENT'S SIGNIFICANT OTHER NOTIFIED. [facility] NOTIFIED OF PATIENT LEAVING.
== END 2023-04-06 17:55 | disposition short-term general hospital (02) | DRG 916 ==
LOC: ED 08:41 → ED-I 10:54 → ED 11:05 → ICU 11:06
PROVIDERS: Family Medicine; ADMIT Student in an Organized Health Care Education/Training Program; ATTEND Student in an Organized Health Care Education/Training Program
PROC: 0BH17EZ Insertion of Endotracheal Airway into Trachea, Via Natural or Artificial Opening (ICD-10-PCS; principal; 2023-04-05)
PROC: 5A1935Z Respiratory Ventilation, Less than 24 Consecutive Hours (ICD-10-PCS; 2023-04-05)
PROC: 02HV33Z Insertion of Infusion Device into Superior Vena Cava, Percutaneous Approach (ICD-10-PCS; 2023-04-05)
DX: T78.2XXA Anaphylactic shock, unspecified, initial encounter (principal); T78.3XXA Angioneurotic edema, initial encounter; F17.200 Nicotine dependence, unspecified, uncomplicated; Z91.09 Other allergy status, other than to drugs and biological substances; Z20.822 Contact with and (suspected) exposure to COVID-19
CPT/HCPCS: J2060

== ENCOUNTER 2024-04-10 16:48 | Emergency (ER) | payer SELFPAY ==
[~2024-04-10] VITALS: Ht 160 cm; Wt 90.7 kg
[2024-04-10] VITALS (15 sets, daily range): BP systolic 135–206; BP diastolic 95–132
[2024-04-10 17:21] LABS: BASO% 0.7 % (0-3); EOS% 3.1 % (0-8); HEMATOCRIT 43.6 % (37.0-47.0); HEMOGLOBIN 14.6 g/dl (12.0-16.0); IMMATURE GRANULOCYTES 0.1 % (0.0-5.0); LYMPH% 29.4 % (15-41); MEAN CORPUSCULAR HGB 31.9 pG CALC (26.0-32.0); MEAN CORPUSCULAR HGB CONC 33.5 g/dL CAL (32.0-36.0); MONO% 7.6 % (2-13); NEUT# 7.43 thou/uL (2.00-7.15); NEUT% 59.1 % (42-76); RED BLOOD COUNT 4.57 mill/uL (4.20-5.60); RED CELL DISTRI WIDTH 12.1 % (11.5-15.5)
[2024-04-10 17:22] LABS: MEAN CELL VOLUME 95.4 fL CALC (80.0-100.0)
[2024-04-10 17:34] LABS: CREATININE 0.7 mg/dL (0.5-1.0)
[2024-04-10 17:40] LABS: ALBUMIN 4.9 g/dL (3.2-5.0); BILIRUBIN, TOTAL 0.9 mg/dL (0.02-1.3); TOTAL PROTEIN 8.6 g/dL (6.3-8.2)
[2024-04-10] MEDS ORDERED: LOSARTAN Potassium 50 MG/TAB PO ONE (17:55)
[2024-04-10 18:12] LABS: URINE BILIRUBIN - DIPSTICK Negative (NEGATIVE); URINE BLOOD DIPSTICK Negative (NEGATIVE); URINE GLUCOSE - DIPSTICK Negative (NEGATIVE); URINE KETONE Trace mg/dL (NEGATIVE); URINE LEUK ESTERASE Negative (NEGATIVE); URINE NITRITE - DIPSTICK Negative (Negative); URINE PH 6.5 (4.5-8.0); URINE PROTEIN - DIPSTICK Negative (NEG-TRACE); URINE SPECIFIC GRAVITY 1.025; URINE UROBILINOGEN - DIPSTICK 0.2 E.U./dL (0.2)
[2024-04-10 18:14] LABS: URINE COLOR Yellow
[2024-04-10] MEDS ORDERED: PREDNISONE20 MG PO (19:20)
[2024-04-10] MEDS ORDERED: predniSONE 20 MG/TAB PO ONE (19:20)
[2024-04-10] MEDS ORDERED: KEFLEX500 MG PO (19:21)
[2024-04-10] MEDS ORDERED: COZAAR25 MG PO (19:30)
== END 2024-04-10 19:49 | disposition home or self-care (01) | DRG 603 ==
LOC: ED 16:48
PROVIDERS: Nurse Practitioner
DX: L03.116 Cellulitis of left lower limb (principal); R03.0 Elevated blood-pressure reading, without diagnosis of hypertension; F17.200 Nicotine dependence, unspecified, uncomplicated